=== PATIENT | female | born 1950 | race Caucasian/White ===

== ENCOUNTER → 2016-07-28 | Outpatient (CLI) | payer BC ==
[~2016-07-28] MED LIST: DIPH50TA10 PO; IRBE-37 PO; WARF1TAB PO; WARF3TAB6 PO; WARF5TAB7 PO; WARF6TAB PO
[2016-07-28 12:28] LABS: BASO % 0.6 %; BASO ABS # 0.03 K/uL (0-0.2); COMPLETE YES; EOS % 2.7 %; HEMATOCRIT 42.7 % (37-47); IG% 0.2 %; LYMPH % 25.2 %; LYMPH ABS # 1.22 K/uL (1.2-3.4); MEAN CELL VOLUME 89.5 fL (80-100); MEAN CORPUSCULAR HEMOGLOBIN 28.5 pg (25-34); MEAN CORPUSCULAR HGB CONC 31.9 g/dl (32-36); MEAN PLATELET VOLUME 10.4 fL (7.4-10.4); MONO % 5.2 %; NEUT % 66.1 %; PLATELET COUNT 214 K/uL (130-400); RED BLOOD COUNT 4.77 M/uL (4.2-5.4); WHITE BLOOD COUNT 4.84 K/uL (4.8-10.8)
[2016-07-28 13:43] LABS: ESTIMATED AVERAGE GLUCOSE 108 mg/dl; HA1C FLAG Normal (Normal)
[2016-07-28 14:34] LABS: BLOOD UREA NITROGEN 11 mg/dl (7-18); BUN/CREATININE RATIO 15.9 (10-20); CALCIUM 8.9 mg/dl (8.5-10.1); CARBON DIOXIDE 25 mmol/L (21-32); CHLORIDE 106 mmol/L (98-107); CREATININE 0.71 mg/dl (0.60-1.20); GLUCOSE 81 mg/dl (70-99); POTASSIUM 3.9 mmol/L (3.5-5.1); SODIUM 143 mmol/L (136-145)
[2016-07-28 14:37] LABS: CHOLESTEROL 180 mg/dl (0-200); HDL CHOLESTEROL 60 mg/dl; LDL CHOLESTEROL CALCULATED 107 mg/dl; TRIGLYCERIDES 65 mg/dl (0-150); VERY LOW DENSITY LIPOPROT CALC 13 mg/dl
== END | disposition home or self-care (01) ==
LOC: C.LABBFT 07:45
PROVIDERS: ATTEND Nurse Practitioner Adult Health
DX: I10 Essential (primary) hypertension (principal); Z87.898 Personal history of other specified conditions

== ENCOUNTER → 2017-08-17 | Outpatient (CLI) | payer OTHER ==
[~2017-08-17] MED LIST changes: -IRBE-37 PO; -WARF1TAB PO; -WARF6TAB PO
--- NOTE | 2017-08-18 15:14 | MAMMOGRAPHY REPORT ---
BILATERAL DIGITAL SCREENING MAMMOGRAM TOMOSYNTHESIS WITH CAD: 08/17/2017 CLINICAL HISTORY: Routine screening. TECHNIQUE: Breast tomosynthesis in addition to standard 2D mammography was performed. Current study was also evaluated with a Computer Aided Detection (CAD) system. COMPARISON: Comparison is made to exams dated: 04/28/2016 mammogram, 04/23/2015 mammogram, 04/17/2014 ma mmogram, 02/28/2013 mammogram, 02/23/2012 mammogram, and 02/19/2011 mammogram - [facility]. BREAST COMPOSITION: There are scattered areas of fibroglandular density in both breasts. FINDINGS: There is a small cluster of microcalcifications in the upper outer one third of the right breast, for which additional spot magnification views are recommended. No other suspicious mass, architectural distortion or cluster of microcalcifications is seen. IMPRESSION: ACR BI-RADS CATEGORY 0: INCOMPLETE EVALUATION: NEED ADDITIONAL IMAGING EVALUATION The small cluster of microcalcifications in the right upper outer breast needs additional evaluation. The patient will be called to schedule an appointment. Approximately 10% of breast cancers are not detected with mammography. A negative mammographic report should not delay biopsy if a clinically suggestive mass is present. Mary Christianson M.D. ay/:08/17/2017 15:45:02 Cupola Patcher Helper: Vivi PETE)(M), [facility] letter sent: Addl Imaging 0 BI-RADS Code: ACR BI-RADS Category 0: Incomplete Evaluation: Need Additional Imaging Evaluation
== END | disposition home or self-care (01) ==
LOC: C.MAMM 10:26
PROVIDERS: ATTEND Family Medicine
DX: Z12.31 Encounter for screening mammogram for malignant neoplasm of breast (principal); R92.0 Mammographic microcalcification found on diagnostic imaging of breast

== ENCOUNTER → 2017-09-01 | Outpatient (CLI) | payer OTHER ==
--- NOTE | 2017-09-01 13:18 | MAMMOGRAPHY REPORT ---
UNILATERAL RIGHT DIGITAL DIAGNOSTIC MAMMOGRAM: 09/01/2017 CLINICAL HISTORY: 66-year-old woman called back from screening mammography for a small cluster of michael rocalcifications in the right upper outer breast. TECHNIQUE: Spot magnification right CC and ML views were obtained. COMPARISON: Comparison is made to exams dated: 08/17/2017 mammogram, 04/28/2016 mammogram, 04/23/2015 ma mmogram, 04/17/2014 mammogram, 02/28/2013 mammogram, and 02/23/2012 mammogram - [facility] enter. BREAST COMPOSITION: There are scattered areas of fibroglandular density in the right breast. FINDINGS: Spot magnification views of the right breast demonstrate a faint cluster of amorphous micro calcifications in the upper outer middle one third of the breast, measuring 2.9 mm in maximum dimensi on. These calcifications are new comparing to prior available mammograms and are indeterminate. Dif ferential considerations include benign fibrocystic changes, but atypia or malignancy could appear si milar. Definitive characterization with a stereotactic guided biopsy is recommended. IMPRESSION: ACR BI-RADS CATEGORY 4: SUSPICIOUS Right breast stereotactic guided biopsy is recommended for a newly visualized faint 2.9 mm cluster of amorphous microcalcifications in the upper outer middle one third of the breast. These results and recommendations were discussed with the patient and her at the time of the exam. She tentatively scheduled the biopsy prior to leaving our department. We discussed that she s hould not discontinue or alter Coumadin prior to biopsy. Approximately 10% of breast cancers are not detected with mammography. A negative mammographic report should not delay biopsy if a clinically suggestive mass is present. Mary Christianson M.D. ay/:09/01/2017 12:31:16 Mica Spreader: Gogo PETE)(Joseph), [facility] letter sent: Abnormal 4/5 BI-RADS Code: ACR BI-RADS Category 4: Suspicious
== END | disposition home or self-care (01) ==
LOC: C.MAMM 11:24
PROVIDERS: ATTEND Nurse Practitioner Family
DX: R92.0 Mammographic microcalcification found on diagnostic imaging of breast (principal)

== ENCOUNTER 2023-01-26 06:58 | Observation (INO) ==
--- NOTE | 2023-01-26 08:01 | History & Physical Bridge Note ---
Date of Service January 26, 2023 History & Physical Bridge Note I have examined the patient, reviewed the History & Physical and in the interval since the performance of the History & Physical I have noted the following changes of clinical significance: no changes noted Brief summary: Persistent exertional dyspnea Abnormal stress test Calcified coronaries Plan right and left heart cath with coronary angiography plus or minus PCI as indicated.
--- NOTE | 2023-01-26 08:02 | Pre Anesthesia Assessment ---
Date of Service January 26, 2023 Pre Sedation Assessment Vital Signs Temp Pulse Resp BP Pulse Ox O2 Del Method 01/26/23 07:10 36.6 C 67 18 181/96 H 96 Room Air Cardiovascular RRR, no murmur, no edema Respiratory normal respiratory effort, lungs clear to auscultation Pre-Sedation Airway Assessment Smoking Status: Former smoker Hx Sleep Apnea: No Short, Thick Neck: No Thyromental Distance: > or= 3.5 Finger Breadths Oral Cavity: + Dentures Mallampati Class: III Mallampati 3 ASA: ASA2 ASA 2 Notes The planned sedation has been discussed with the patient. Informed Consent was obtained. I have identified the patient, determined the appropriateness of sedation and have assessed the patient immediately prior to the procedure. All medicine(s) and interventions are by my order.
[2023-01-26] MEDS ORDERED: MIDAZOLAM HCL 1 MG/ML 2ML VIAL ONE ×2 (08:07→08:26)
[2023-01-26] MEDS ORDERED: niCARdipine HCL INJ 2.5 MG/ML 10 ML AMP ONE (08:07)
[2023-01-26] MEDS ORDERED: NITROGLYCERIN/D5W 100MCG/ML 20ML SYR ONE (08:07)
[2023-01-26] MEDS ORDERED: fentaNYL citrate PF 100 MCG/2 ML VIAL ONE ×2 (08:07→09:05)
[2023-01-26] MEDS ORDERED: HEPARIN (PORCINE) 1000 UNIT/ML 10 ML (CATH LAB USE ONLY) ONE (08:07)
[2023-01-26] MEDS ORDERED: hydrALAZINE HCL 20 MG/ML VIAL ONE (09:02)
[2023-01-26] MEDS ORDERED: diphenhydrAMINE 50 MG/ML VIAL ONE (09:15)
[2023-01-26] MEDS ORDERED: DOPamine 400MG / 250ML D5W (Cath Lab Use ONLY) IV ONE (09:47)
[2023-01-26] MEDS ORDERED: ONDANSETRON INJ 2 MG/ML 2 ML VIAL ONE ×3 (09:48→10:57)
[2023-01-26] MEDS ORDERED: TICAGRELOR 90 MG TAB ONE (09:50)
[2023-01-26] MEDS: MIDAZOLAM HCL 1 MG/ML 2ML VIAL ONE ×2 (09:56→10:01)
[2023-01-26 10:10] LABS: iSTAT Arterial Blood Gas HCO3 25 meg/L (19-24); iSTAT Arterial Blood Gas pCO2 44 mmHg (35-46); iSTAT Arterial Blood Gas pH 7.37 (7.35-7.45); iSTAT Arterial Blood Gas pO2 40 mmHg (80-95); iSTAT Carbon Dioxide 27 mmol/L (24-31); iSTAT Hematocrit 32 % (37-47); iSTAT Hemoglobin 10.9 g/dl (12.0-16.0); iSTAT Potassium 3.6 mmol/L (3.3-5.0); iSTAT Sodium 138 mmol/L (135-144)
[2023-01-26] MEDS ORDERED: ENOXAPARIN INJ 40 MG/0.4 ML SYR SQ SCH (10:15)
[2023-01-26] MEDS ORDERED: diazePAM 5 MG TABLET PO PRN (10:19)
[2023-01-26] MEDS ORDERED: ASPIRIN 325 MG ECTAB PO ONE (10:21)
--- NOTE | 2023-01-26 10:24 | Post Anesthesia Assessment ---
Date of Service January 26, 2023 Post Sedation Assessment Vital Signs Temp Pulse Resp BP Pulse Ox O2 Del Method 01/26/23 07:10 36.6 C 67 18 181/96 H 96 Room Air Recovery Score Activity: Moves 4 extremities Respiration: Deep Breath/Cough Circulation: +/-20% PreAnes Value Consciousness: Fully Awake Oxygen Saturation: > 92% On Room Air Discharge Sedation Level of Care: Fast Track Phase II Post Sedation Plan On clinical assessment, the patient appears to have tolerated the sedation without complications. Patient is recovering as anticipated. Patient will continue to be monitored by nursing and may be discharged when sedation discharge criteria are met per below protocol. Upon Completions of procedure up to 15 minutes continue every 5 minute vital signs and the P.A.R. score; then discharge to a Phase I or Fast Track to Phase II per the following guidelines: * Discharge Patient to appropriate Phase II area if PAR is 8 or greater or return to pre- procedure baseline. The post - procedure orders will be as directed. * If PAR score is less than 8 or not return to pre-procedure baseline then patient will follow Phase I monitoring till PAR is reached for Phase II. The Phase I may be done in procedure room or may call to secure a Phase I area. * If naloxone or flumazenil are used for reversal, hold in Phase I for continued monitoring from when last reversal dose was given for a minimum of 60 minutes or longer pending the nurse and/or physician discretion of patient condition before discharge to Phase II. Please call the Sedation Physician to re-evaluate and complete post-note for discharge to Phase II area. Do NOT discharge from procedure sedation or Phase 1 until post- sedation evaluation note is complete by procedure /sedation MD Sedation Discharge Instructions to be given to the patient at discharge to home. [facility] Procedure Codes (Charges) Indication for Procedure Indication for procedure: HIGHTOWER/angina abnormal stress Sedation/Anesthesia Procedure 1: Sedation/Anesthesia: 59527 Mod Sedation by the same physician;Init15 Min Child Age 5 & Up (Initial 15 minutes, start time 0821) Total Sedation Time (minutes): 102 Procedure 2: Sedation/Anesthesia: 96743 Mod Sedation by the same physician; Ea [id number] Minutes (Additional 87 min, end time 1003) Total Sedation Time (minutes): 102
--- NOTE | 2023-01-26 10:46 | Cardiac Catheterization ---
ACC Data: Grape Picker Cardiac Status Clinical evaluation leading to the procedure Exertional dyspnea, abnormal stress test CAD Presenation: Positive Stress Test Anginal Classification: CCS III Heart Failure: No Cardiogenic Shock within 24 Hours: No Cardiac Arrest within 24 Hours: No Imaging Studies Past 6 Months: Yes Stress Studies Past 6 Months: Yes Coronary Anatomy Dominant: Right Left Main (% Stenosis): Normal LAD (% Stenosis): Mid (90%) D1 (% Stenosis): Ostial (90%) D2 (% Stenosis): Ostial (99%) and Proximal Circumflex (% Stenosis): Normal (Diffuse mild) OM1 (% Stenosis): Proximal (20 to 30%) L PL1 (% Stenosis): Normal RCA (% Stenosis): Proximal (Calcified up to 40%) and Mid (30%) R PDA (% Stenosis): Normal R PL1 (% Stenosis): Normal Ramus (% Stenosis): Ostial (95%) Diagnostic Physicians Name: Davidson Baez MD, PhD Closure Device Percutaneous Entry Location: Radial and femoral Closure Device: Angio-Seal and Radial Band Recommendations: Medical Therapy and/or Counseling and PCI without planned CABG PCI Indication: Stable Angina Lesion Segment Name: Mid to distal LAD Culprit Artery: Yes Stenosis Prior to Rx (%): 90% Chronic Total Occlusion: No Pre-Procedure MARANDA Flow: 3 Previously Treated Lesion: No Lesion Complexity: High/C Lesion Length (mm): 15 mm Thrombus Present: No Bifurcation Lesion: Yes Guidewire Across Lesion: Yes Lesion #2 Segment Name: Ostial to proximal D2 Culprit Artery: Yes Stenosis Prior to Rx (%): 99 Chronic Total Occlusion: No Pre-Procedure MARANDA Flow: 2 Previously Treated Lesion: No Lesion Complexity: Non-High/Non-C Lesion Length (mm): 6 Thrombus Present: No Bifurcation Lesion: Yes Guidewire Across Lesion: Yes Cardiac Cath Procedure Full Procedure Date January 26, 2023 Pre-Procedure Diagnosis Pre-Procedure Diagnosis: Positive Stress Test AUC Score AUC Score: 07 Post-Procedure Diagnosis Post-Procedure Diagnosis: Severe CAD Procedure(s) Performed Procedure(s) Performed: Coronary Angiography, Right Heart Cath, PTCA, Drug Eluting Stent and Ultrasound Guided Vascular Access Box Turner Davidson Baez MD, PhD Estimated Blood Loss Estimated Blood Loss: 20 ML Medication(s) Medication(s): Fentanyl, Heparin, Hydralazine, Lidocaine 1%, Nitroglycerin and Versed Summary of Findings Brief description: Patient was brought to the cardiac catheterization suite where she was shaved and prepped in a sterile fashion. Sedated using IV Versed and fentanyl. Patient had a large bore IV in her vein at the right antecubital fossa. Soft tissues around the IV site were anesthetized using 1 mL of 1% Xylocaine. The IV was exchanged over a 0.014 sheath wire for a 6 Georgian sheath. However, we were unable to aspirate blood and we could not find the lumen of the IV. Therefore, this sheath was removed and hemostasis was obtained using manual compression. Soft tissues of the right wrist were anesthetized using 2 mL of 1% Xylocaine. The right radial artery was accessed using a modified Seldinger technique. Despite multiple sticks we were unable to pass the guidewire up the artery far enough to insert a radial artery sheath. Suspect significant tortuosity as we approached the antecubital fossa. Therefore, we eventually decided to abandon radial artery access. This sheath was fixed in place to be removed once the case was completed. We then turned our attention to right femoral access. Soft tissues of the right groin were anesthetized using 10 mL of 1% Xylocaine. Using ultrasound for guidance, the right femoral vein was accessed and a 6 Georgian femoral venous sheath was placed. Then, again using the ultrasound for guidance (image saved), the right femoral artery was accessed and a 5 Georgian femoral artery sheath was placed. All catheters were then advanced and exchanged over a 0.035 J-tip wire. Left coronary angiography was performed in orthogonal views with a 5 Georgian JL 4 guiding diagnostic catheter. Right coronary angiography was performed in orthogonal views with a 5 Georgian JR4 diagnostic catheter. Diagnostic catheters were removed. A 6 Georgian Palacios-Di catheter was then advanced through the femoral venous sheath and using a Palacios-Di wire it was advanced under fluoroscopy and positioned terminally in the "wedge position". The pulmonary capillary wedge pressure was then sampled. The Palacios balloon was deflated and the pulmonary arterial pressure and oxygen saturation were sampled. A systemic arterial oxygen saturation was obtained via the femoral artery sheath. Palacios-Di catheter was pulled back into the right ventricle where right ventricular hemodynamics were measured. Finally, the catheter was pulled into the right atrium or right atrial pressure and oxygen saturation were sampled. The catheter was then removed from the patient. We next wished to proceed with PCI. We needed to exchange the 5 Georgian femoral artery sheath for the 6 Georgian femoral artery sheath. However, when we tried to make the exchanged over the J- wire we lost both the femoral sheath access as well as the wire access. Theref ore, hemostasis at the right groin site was obtained using manual compression for 20 minutes. Once this was obtained, decision was made to proceed with access from the left femoral artery. Soft tissues of the left groin were anesthetized using 10 mL of 1% Xylocaine. Using the ultrasound for guidance (image saved), the left femoral artery was accessed and a 6 Georgian femoral artery sheath was placed. The patient was then provided IV heparin. The ACT was checked intermittently throughout the case to ensure therapeutic anticoagulation. Additional IV heparin was provided as necessary. A 6 Georgian BMW 3.5 guide catheter was advanced over the J-wire and used to engage the left main coronary. Through this, a BMW number so guidewire was advanced under fluoroscopic guidance and positioned distally in the LAD. Then, a second BMW universal guidewire was advanced and directed into the second diagonal where it was positioned distally. The lesion in the ostial to proximal second diagonal was predilated using a 2.0 x 12 mm sprinter balloon and inflated up to 8 sarah x 2. The balloon was then removed and advanced over the BMW reversal guidewire in the LAD. This lesion was then predilated using up to 8 sarah. The balloon was subsequently removed. A 2.5 x 22 mm [place] drug-eluting stent was then advanced and positioned across the lesion in the mid to distal LAD. The guidewire in the second diagonal was pulled back into the guide catheter to avoid trapping it behind the stent. The stent was then deployed using 10 sarah of pressure. Patient reported onset of chest discomfort. Airline Pilot angiography was performed. This demonstrated plaque shifting and jailing of the ostium in the diagonal branch with significantly reduced flow. The patient's blood pressure also was noted to be extremely elevated. She was provided IV hydralazine as well as intracoronary nitroglycerin. The second BMW guidewire was readvanced and directed into the second diagonal where it was advanced to the mid segment. A 2.0 x 6 mm sprinter balloon was then advanced over the wire. It was first positioned in the proximal portion of the diagonal 2 and inflated to 8 sarah. The balloon was then deflated and positioned across the stent strut/ostium where it was again inflated up to 8 sarah. Patient reported improvement but not resolution of her chest discomfort. Airline Pilot angiography suggested modest improvement in flow in the diagonal. No additional intervention was performed on the diagonal branch because of high risk for complication. The second BMW guidewire and the balloon were both removed. The initial BMW guidewire in the LAD was also removed and angiography was performed. The guide catheter was then removed. We intended to perform left femoral artery angiography to evaluate for closure. However, a hematoma was noted prior to the sheath removal. The sheath was also noted to be kinked near the entry into the femoral artery on angiography. We were able to eventually pass a 0.035 J-wire through the sheath undue kink. Then, the femoral artery sheath was exchanged for a 6 Georgian Angio-Seal closure device. This was deployed in the recommended fashion. We obtained immediate hemostasis and the patient remained stable (hypertensive). ACT was checked prior to sheath removal and additional heparin was provided until patient could receive oral Brilinta. Hemostasis at the femoral venous access site was obtained using manual pressure. The radial artery access site hemostasis was obtained using a TR band. Patient was then transported to the recovery area with plan for admission overnight. This ended the case. Right heart cath findings: PCWP-15 mmHg PAP-30/13 mmHg, mean 19 mmHg RVP-30/6 mmHg, RVEDP 10 mmHg RA-8 mmHg PA O2 sat-73% RA O2 sat-67% Ao O2 sat-97% Cardiac output (Milagro): 7.04 L/min Cardiac index (Milagro): 3.77 L/min/m Pulmonary vascular resistance- 0.57 Glover units Systemic vascular resistance-11.22 Glover units Total vascular resistance-12.35 Glover units Coronary angiography findings: YFN-lezzz-dzocdfh short vessel which trifurcates into LAD, ramus, and circumflex. No disease. LAD-large caliber and transapical. Proximal segment has mild calcification with ostial up to 30% stenosis. There is a medium caliber first septal and a small to medium caliber branching first diagonal. This has diffuse up to 90% stenosis. Mid LAD has a long eccentric 90% stenosis crossing the ostium of the second diagonal. Second diagonal is a medium to large in caliber with an ostial 99% stenosis and proximal tortuosity with mild to moderate disease. The vessel then branches after the proximal portion. The distal LAD has mild scattered disease. Ramus-small in caliber long vessel with ostial 95% stenosis. GCb-dqdrd-bxloiub and nondominant. Proximally there is mild luminal irregularities in the AV groove vessel. It provides a large caliber branching OM1. This vessel has mild 20 to 30% stenosis. The mid AV groove circumflex has diffuse mild disease. It then becomes small in the AV groove distally and provides a small posterolateral branch. FZO-vbidg-nplppto dominant vessel. Proximal segment with a long eccentric calcified stenosis of up to 40%. The mid RCA has 30% stenosis. Distally the vessel appears normal. It bifurcates into a PDA and posterolateral branch which have no significant disease. PCI of LAD- 0% residual stenosis in the LAD post PCI. MARANDA-3 flow in the LAD post PCI No evidence of dissection or perforation in the LAD post PCI The severely diseased ostial to proximal segment of the second diagonal remains jailed and severely diseased. Not amenable to further intervention. Summary: 1. Severe coronary artery disease. LAD most affected with several smaller side branches also having significant disease. The small branches are too small for stenting. 2. Successful PCI of the LAD with implantation of a single drug-eluting stent. Diagonal #2 jailed with reduced flow. 3. Right heart cath suggests normal intracardiac pressures and normal cardiac output. 4. Patient with significant vascular access issues. This includes at the original upper extremity venous access site. Right radial access site which was unable to be traversed with the guidewire despite good blood return. Also with right femoral artery access difficulty. Finally, moderate sized hematoma at the left femoral access site. Appears to be bleeding around the sheath (very elevated blood pressure while on blood thinners and sheath which was kinked). 5. Patient will remain on dual antiplatelet therapy with aspirin 81 mg daily and Brilinta 90 mg p.o. twice daily. She will also be started on guideline directed medical therapy for secondary prevention of coronary disease. 6. Patient will be admitted overnight for observation on a monitored unit given the vascular access issues and the jailed diagonal branch. Hemodynamics Rest Ao:: 149/76 mmHg Final Ao: 114/65 mmHg LV: Not performed Recommendations Recommendations: Medical Therapy and/or Counseling and PCI without planned CABG Radiation Exposure (mGy) 2070 mGy, fluoroscopy time 12.9 minutes Contrast (mls) 200 mL Anesthesia 4 mg IV Versed, 125 mg IV fentanyl. Start time 0821, end time 1003 Procedural Complication(s) Hematoma Disposition PCU I attest to the content of the Intraoperative Record and any orders documented therein. Any exceptions are noted below. [facility] Card Cath Procedure Codes Cardiac Catheterization Procedure 1: Cardiovascular Cath Procedures: 62847 Coronaries and RHC Therapeutic Services & Ancillary Procedure 1: Cardiovascular Tx and Anc Procedures: 72049 Ultrasonic Guidance Vascular Access Moderate Sedation Procedure 1: Sedation/Anesthesia: 57964 Mod Sedation by the same physician;Init15 Min Child Age 5 & Up (Initial 15-minute (start time 0821)) Procedure 2: Sedation/Anesthesia: 45687 Mod Sedation by the same physician; Ea [id number] Minutes (Additional 77 min (end time 1003) Angioplasty Procedure 1: Cardiovascular Angioplasty Procedures: 53174 PTCA; Single mafor coronary artery or branch RC LC LD (LD (D2)) Stenting Procedure 1: Cardiovascular Stent Procedures: 65785 Perc transcatheter placement of intracoronary stent(s), with ang (LD) PG Care Time/CCT Total # of Minutes Spent Total Time Spent with Patient: Total time spent is greater than 50% in coordination of care (as documented) at patient's floor/unit and/or counseling patient:
[2023-01-26] MEDS ORDERED: PHENYLEPHRINE HCL INJ 10 MG/ML VIAL (CATH LAB USE ONLY) ONE ×2 (10:53→11:04)
[2023-01-26] MEDS ORDERED: ASPIRIN 81 MG CHEW ONE (11:03)
[2023-01-26] MEDS ORDERED: OPTIRAY 320 100ml IV ONE (11:20)
--- NOTE | 2023-01-26 11:50 | CT Scan Report ---
CT OF THE ABDOMEN AND PELVIS WITH CONTRAST CLINICAL HISTORY: post cardiac cath, femoral access COMPARISON STUDY: CT of the abdomen and pelvis March 12, 2016. MRI of the pelvis August 10, 2020. TECHNIQUE: Following IV administration of 89 mL of Optiray, axial images of the abdomen and pelvis we re obtained from the lung bases to the proximal femurs. Images were reviewed in the axial, sagittal, and coronal planes. IV contrast was administered without complication. Automated exposure control wa s utilized for the study. A dose lowering technique was utilized adhering to the principles of ALARA . CT DOSE: 1646.39 mGy.cm FINDINGS: No pneumatosis, free air or portal venous gas is present. The liver, adrenal glands and sevilla creas are unremarkable. There are calcified granulomas within the spleen. 2.6 cm cyst arising from th e upper pole the left kidney is noted. There is no hydronephrosis. Excreted contrast within the urete rs, collecting systems and bladder from recent catheterization is noted. The bladder is distended. Th ere is no evidence for a bowel obstruction. The caliber and wall thickness of small and large bowel a re normal. There is moderate stranding with hyperdense fluid adjacent to the left common femoral and superficial femoral arteries. Mild stranding extends superiorly along the left external iliac vessels . There is no significant retroperitoneal hematoma. No active extravasation is identified. No pseudoa neurysm is identified on non-CTA exam. No well-defined fluid collection is present. Postoperative fin dings within the lumbar spine are incidentally noted. IMPRESSION: Moderate stranding with small amount of hyperdense fluid adjacent to the left groin vessels, as descr ibed above. This is consistent with hemorrhage. No large hematoma. No pseudoaneurysm. Minimal hemorrh age extending superiorly along the left external iliac vessels without significant retroperitoneal he matoma. ACT 112: Negative or not required by law. Electronically signed by: Matthew Rodriguez M.D. 01/26/2023 11:49 AM
--- NOTE | 2023-01-26 12:11 | Critical Care Consultation ---
Date of Consultation January 26, 2023 Assessment & Plan (1) Hemorrhagic shock: (2) HTN (hypertension): (3) Abnormal stress test: (4) HIGHTOWER (dyspnea on exertion): (5) Coronary artery disease: Plan Patient with postprocedural hypotension likely a mixture of hypovolemia/hemorrhage and sedation related hypotension. No large hematoma or hemorrhage identified on CT abdomen/pelvis. There is a small fluid collection noted around the left groin vessels. Status post drug-eluting stent to the LAD. Guideline therapy per cardiology. Hopefully stenting will help improve her dyspnea. Recommend cardiac rehab as an outpatient. We will hold oral antihypertensives today. Antiplatelet therapy per cardiology. She is responding well to crystalloids and has been weaned off phenylephrine. If her blood pressure were to drop again, we will place an arterial line for invasive monitoring. I-STAT CBC with a hemoglobin of 10.9 which is slightly lower than baseline. INR and PTT pending. Lactate pending as well. Await repeat echo results. Continue Anthony catheter as long as she remains supine per cardiology recommendations due to invasive access related to her heart catheterization. Thank you for allowing us to participate in the care of the patient. We will continue to follow with you as long as she remains under ICU status History of Present Illness Reason for Consultation: Hypotension status post left heart catheterization and right heart catheterization Attending Physician: Davidson Baez MD, PhD History of Present Illness 72-year-old female with a past medical history of recalcitrant hypertension, anxiety, IBS, BPPV, prior pulmonary embolism and spinal stenosis who presented today to undergo an elective right and left heart catheterization by Dr. Baez. She has chronic shortness of breath with exertion. She denies any cough, fevers, chills or night sweats. No chest pain. I spoke with Dr. Baez regarding her case. He noted that she had difficult access due to obesity and excess skin tissue from prior weight loss. He tried access from both femoral sites and there was ultimately some bleeding around the left groin vessels during access. He notes that her systolic blood pressure was in the 240s during that timeframe. Stat CTA of the abdomen and pelvis was obtained. Moderate stranding with small amount of hyperdense fluid adjacent to the left groin vessels was noted which was consistent with hemorrhage. No large hematoma or retroperitoneal hematoma was noted. Patient received several boluses of crystalloids and phenylephrine. Since transferring from the Gynecologist to the ICU, she has been weaned off of phenylephrine and maintaining systolic blood pressures in the 120s on noninvasive blood pressure cuff readings. She had a serologic secondary hypertension work-up by Dr. Baez which was unremarkable. She is currently undergoing an echo. Allergies Allergy/AdvReac Type Severity Reaction Status Date / Time cat dander Allergy Severe THROAT Verified 01/26/23 07:36 CLOSES lubiprostone [From Amitiza] Allergy Severe elevated Verified 01/26/23 07:36 inr metronidazole [From Flagyl] Allergy Severe "severe Verified 01/26/23 07:36 reaction, can't even describe" rivaroxaban [From Xarelto] Allergy Intermediate Back Pain Verified 01/26/23 07:36 losartan Allergy Mild nausea/heart Verified 01/26/23 07:36 palpitations lisinopril AdvReac Mild Nausea Verified 01/26/23 07:36 Home Medications Medication Instructions Recorded Confirmed Type pharmacy compounding accessory #28 ea 03/08/19 01/07/23 Rx diclofenac sodium 1 % topical gel 2 gm topical TID PRN pain and 04/11/19 01/26/23 History inflammation #1 g conjugated estrogens 0.625 mg/gram 0.625 mg vaginal .COMPLEX 12/24/20 01/26/23 History vaginal cream (Premarin) fluocinonide 0.05 % topical cream 1 applic topical DAILY PRN rash 03/04/21 01/26/23 Rx #15 grams hydrocortisone 2.5 % topical cream 1 applic topical .COMPLEX #30 grams 05/01/21 01/26/23 Rx mupirocin 2 % topical ointment 1 applic topical BID #15 grams 05/06/21 01/26/23 Rx duloxetine 30 mg capsule,delayed 30 mg PO DAILY PRN Anxiety 12/25/21 01/26/23 History release (Cymbalta) clindamycin phosphate 1 % topical 1 applic topical BID PRN Acne 10/23/22 01/26/23 History solution clotrimazole 1 % topical solution See Rx Instructions topical BID 10/23/22 01/26/23 History PRN acne diazepam 5 mg tablet 5 mg PO BID PRN anxiety #15 tabs 10/23/22 01/26/23 Rx fluocinolone acetonide oil 0.01 % 4 drp otic (ear) BID PRN ear 10/23/22 01/26/23 History ear drops itching meloxicam 15 mg tablet 15 mg PO DAILY PRN Inflammation 10/23/22 01/26/23 History duloxetine 60 mg capsule,delayed 60 mg PO QAM #90 caps 12/11/22 01/26/23 Rx release (Cymbalta) irbesartan 150 mg tablet 75 mg PO BID 30 days #30 tabs 12/25/22 01/26/23 Rx hydrocortisone acetate 25 mg 25 mg OR BID PRN pain #24 ea 01/11/23 01/26/23 Rx rectal suppository (Anucort-HC) lactulose 10 gram/15 mL oral 30 g (45 mL) PO QID PRN 01/11/23 01/26/23 Rx solution constipation #473 mL Patient History Medical History (Updated 01/26/23 @ 13:37 by Pérez Stover MD) Arthritis Atrophic vaginitis Chronic pelvic pain syndrome in female Coronary artery disease CRPS (complex regional pain syndrome) Hemorrhagic shock HTN (hypertension) Hx of diverticulitis of colon Hx of pulmonary embolus "IN MY 20'S" (TREATED WITH IV HEPARIN IN THE HOSPITAL) IBS (irritable bowel syndrome) Kidney lesion PER PATIENT Mixed conductive and sensorineural hearing loss of right ear with restricted hearing of left ear Rectocele Sensorineural hearing loss of both ears Spinal stenosis Surgical History History of appendectomy History of colonoscopy History of cystoscopy WNL History of D&C History of lumbar surgery X 3 History of partial hysterectomy History of salpingo-oophorectomy LEFT History of surgery right index finger repair History of tonsillectomy Family History Father Prostate cancer Kidney stones Hearing loss Environmental allergies severe hay fever Unknown Myocardial infarction Prostate cancer Mother Breast cancer Other No family history of adverse response to anesthesia No family history of bleeding disorder Denies family history of Ovarian cancer Colorectal cancer Social History Smoking Status: Former smoker Tobacco Type: Cigarettes Age Started Using Tobacco: 20; Age Quit Using Tobacco: 44; packs per day: 3; Second Hand Exposure: Yes (IN THE PAST); Do You Dip or Chew Tobacco: No; Hx Alcohol Use: No Hx Substance Use: No Preferred Language: Yoruba Communication Ability: Effective Visual Impairment: No Limitations Hearing Ability: Normal Hog Worker Required: No Beliefs That Will Affect Care: None marital status: Current Living Situation: Spouse current occupational status: retired current occupation: used to be a homemaker How many Children do You have: 1 Other Information That Helps Us Care for You: No Feels Safe at Home: Yes Safety Concerns: Feels Safe At This Time Childhood Exposure to Second-Hand Smoke: Yes Diet: regular caffeine: No during the past year weight has: remained stable Dental Care, Regularly: No Physical Activity Frequency: Daily Seatbelt Use: always Sunscreen Use: No Assistive Devices: Contacts, Denture - Upper and Denture - Lower Review of Systems Review of Systems: All systems reviewed & are unremarkable except as noted in HPI & below Physical Exam Physical Exam: Constitutional: Patient appears to be of their stated age. Patient is in no apparent distress. Patient is well-developed. Eyes: Pupils are equal round and reactive to light. Conjunctivae are normal. Anicteric sclera. Ears nose, mouth and throat: Mallampati class 2. Normal posterior oropharynx. Uvula is midline. Neck: Trachea is midline. Visual inspection is normal. Respiratory: Clear to auscultation bilaterally. No use of accessory muscles. No significant clubbing noted. Cardiovascular: Distal peripheral pulses intact. No murmurs, rubs or gallops. Femoral puncture sites appear to be intact without evidence of bleeding. Left femoral site with mild fullness. Gastrointestinal: Normal bowel sounds, soft, nontender and nondistended. No hepatosplenomegaly noted. Musculoskeletal: No cyanosis. Patient is able to move all extremities. Strength is 5 out of 5 in the upper and lower extremities. Skin: No rashes, warm dry and intact. Neurologic: No obvious focal neurological deficits seen. Psychiatric: Alert and oriented x3 with a euthymic affect. Results & Data Results & Data Vital Signs (Past 12 Hours) Vital Signs Temp Pulse Resp BP Pulse Ox O2 Del Method 01/26/23 11:45 63 16 121/59 L 96 Room Air 01/26/23 11:30 63 16 126/58 L 96 Room Air 01/26/23 11:00 63 16 105/53 L 96 Room Air 01/26/23 10:45 63 16 82/42 L 96 Room Air 01/26/23 10:35 65 16 89/43 L 92 Room Air 01/26/23 10:20 65 16 93/50 L 92 Room Air 01/26/23 07:10 36.6 C 67 18 181/96 H 96 Room Air Coding Level of Care Code 55698 IN/OBS CONSULT LVL 5,80M Diagnoses Hemorrhagic shock R57.8 HTN (hypertension) I10 Hypertension type: primary hypertension Abnormal stress test R94.39 HIGHTOWER (dyspnea on exertion) R06.09 Coronary artery disease I25.10 (2) HTN (hypertension) Hypertension type: primary hypertension Qualified Code(s): I10 - Essential (primary) hypertension
[2023-01-26 13:26] LABS: Hematocrit (blood only) 35.1 % (37.0-47.0); Hemoglobin 11.5 g/dl (12.0-16.0); Mean Corpuscular Hemoglobin 28.7 pg (25.0-34.0); Mean Corpuscular Hgb Conc 32.8 g/dL (32.0-36.0); Mean Corpuscular Volume 87.5 fL (80.0-100.0); Mean Platelet Volume 10.2 fL (9.4-12.4); Platelet Count 240 K/uL (130-400); RDW Coefficient of Variation 14.3 % (11.5-14.5); RDW Standard Deviation 45.8 fL (36.4-46.3); Red Blood Count 4.01 M/uL (4.20-5.40); White Blood Count 10.93 K/ul (4.8-10.8)
[2023-01-26] MEDS: ACETAMINOPHEN 325 MG TAB PO PRN ×3 (13:48→22:02)
[2023-01-26 14:08] LABS: Partial Thromboplastin Ratio 2.6
[2023-01-26 14:11] LABS: Partial Thromboplastin Time 72.3 Seconds (21.0-31.0)
[2023-01-26 14:39] LABS: BUN Creatinine Ratio 16.2 (10-20); Calcium 8.6 mg/dl (8.6-10.3); Creatinine Clr Calc Pharmacy 36.4 ml/min; Est GFR (African American) 95.1 ml/min; Est GFR (Non-African American) 82.1 ml/min; Potassium 3.5 mmol/L (3.5-5.1)
--- NOTE | 2023-01-26 16:38 | XCELERA ---
[id number] [id number]
[2023-01-26] MEDS: TICAGRELOR 90 MG TAB PO SCH (20:04)
[2023-01-26] MEDS: METOPROLOL TARTRATE 25 MG TAB PO SCH (20:04)
[2023-01-26] MEDS: LOSARTAN POTASSIUM 25 MG TAB PO SCH (20:06)
[2023-01-27] MEDS: ACETAMINOPHEN 325 MG TAB PO PRN ×2 (04:58→08:26)
[2023-01-27 05:20] LABS: Basophils # (auto) 0.04 K/uL (0.00-0.20); Basophils % (auto) 0.5 %; Eosinophils # (auto) 0.19 K/uL (0.00-0.50); Eosinophils % (auto) 2.3 %; Hematocrit (blood only) 32.2 % (37.0-47.0); Hemoglobin 10.6 g/dl (12.0-16.0); Immature Granulocytes # (auto) 0.03 K/uL (0.01-0.20); Immature Granulocytes % (auto) 0.4 %; Lymphocytes # (auto) 1.32 K/uL (1.20-3.40); Lymphocytes % (auto) 16.1 %; Mean Corpuscular Hemoglobin 28.6 pg (25.0-34.0); Mean Corpuscular Hgb Conc 32.9 g/dL (32.0-36.0); Mean Corpuscular Volume 86.8 fL (80.0-100.0); Monocytes # (auto) 0.58 K/uL (0.11-0.59); Monocytes % (auto) 7.1 %; Neutrophils # (auto) 6.02 K/uL (1.40-6.50); Neutrophils % (auto) 73.6 %; Platelet Count 227 K/uL (130-400); RDW Coefficient of Variation 14.6 % (11.5-14.5); RDW Standard Deviation 46.5 fL (36.4-46.3); Red Blood Count 3.71 M/uL (4.20-5.40); White Blood Count 8.18 K/ul (4.8-10.8)
[2023-01-27 05:33] LABS: BUN Creatinine Ratio 17.9 (10-20); Calcium 8.6 mg/dl (8.6-10.3); Est GFR (African American) 89.3 ml/min; Potassium 3.7 mmol/L (3.5-5.1)
[2023-01-27] MEDS ORDERED: POTASSIUM CHLORIDE CRTAB 20 MEQ TABCR PO STA (05:54)
--- NOTE | 2023-01-27 07:45 | Hospitalist Progress Note ---
Date of Service January 27, 2023 Assessment & Plan (1) Coronary artery disease: Plan: Status post drug-eluting stent to the LAD. Guideline therapy per cardiology. aspirin , Brilinta, atorvastatin, metoprolol Cozaar Recommend cardiac rehab as an outpatient. (2) Hemorrhagic shock: Plan: Pt was hypotensive posts procedure concern for hypovolemic shock, supported briefly with pressors No large hematoma or hemorrhage identified on CT abdomen/pelvis. There is a small fluid collection noted around the left groin vessels. (3) HTN (hypertension): Plan: typically with metoprolol Plan Continue Anthony catheter as long as she remains supine per cardiology recommendations due to invasive access related to her heart catheterization. Thank you for allowing us to participate in the care of the patient. We will continue to follow with you as long as she remains under ICU status Admission and Anticipated Discharge Date Admission Date: January 26, 2023 Results & Data Results & Data Vital Signs (Past 12 Hours) Vital Signs Temp Pulse Resp BP Pulse Ox 01/27/23 05:02 144/97 H 01/27/23 05:02 62 13 96 01/27/23 05:01 65 17 95 01/27/23 05:01 171/101 H 01/27/23 05:00 62 18 96 01/27/23 04:30 59 L 15 95 01/27/23 04:01 63 14 94 01/27/23 04:01 168/94 H 01/27/23 04:00 98.6 F 60 13 95 01/27/23 03:30 57 L 13 95 01/27/23 03:00 64 16 95 01/27/23 03:00 161/87 H 01/27/23 02:30 59 L 20 93 01/27/23 02:00 61 17 93 01/27/23 02:00 167/84 H 01/27/23 02:00 167/84 H 01/27/23 01:30 60 21 93 01/27/23 01:00 62 14 94 01/27/23 01:00 172/93 H 01/27/23 00:30 60 21 94 01/27/23 00:00 64 13 94 01/27/23 00:00 150/84 H 01/26/23 23:30 61 16 94 01/26/23 23:59 84 01/26/23 23:00 64 13 95 01/26/23 23:00 142/73 H 01/26/23 22:00 65 12 95 01/26/23 22:00 157/87 H 01/26/23 22:00 98.4 F 157/87 H 01/26/23 21:00 68 13 96 01/26/23 21:00 159/82 H 01/26/23 20:00 98.4 F 01/26/23 20:30 67 14 94 01/26/23 20:00 69 14 94 01/26/23 20:00 145/90 H PG Care Time/CCT Total # of Minutes Spent Total Time Spent with Patient: Total time spent is greater than 50% in coordination of care (as documented) at patient's floor/unit and/or counseling patient: Coding Diagnoses Coronary artery disease I25.10 Hemorrhagic shock R57.8 HTN (hypertension) I10 Hypertension type: primary hypertension (3) HTN (hypertension) Hypertension type: primary hypertension Qualified Code(s): I10 - Essential (primary) hypertension
[2023-01-27] MEDS: LOSARTAN POTASSIUM 25 MG TAB PO SCH (08:25)
[2023-01-27] MEDS: TICAGRELOR 90 MG TAB PO SCH (08:26)
[2023-01-27] MEDS: METOPROLOL TARTRATE 25 MG TAB PO SCH (08:26)
--- NOTE | 2023-01-27 08:27 | Critical Care Progress Note ---
Date of Service January 27, 2023 Assessment & Plan (1) Hemorrhagic shock: (2) HTN (hypertension): (3) Abnormal stress test: (4) HIGHTOWER (dyspnea on exertion): (5) Coronary artery disease: Plan Patient with postprocedural hypotension likely a mixture of hypovolemia/hemorrhage and sedation related hypotension. No large hematoma or hemorrhage identified on CT abdomen/pelvis. There is a small fluid collection noted around the left groin vessels. Hypotension has resolved. Status post drug-eluting stent to the LAD. Guideline therapy per cardiology. Hopefully stenting will help improve her dyspnea. Recommend cardiac rehab as an outpatient. May benefit from outpatient PFTs given prior smoking history of dyspnea persist while outpatient. Consider outpatient sleep study given hypertension that is resistant to multiple drugs. Antihypertensive and antiplatelet regimen per cardiology. She is responding well to crystalloids and has been weaned off phenylephrine. If her blood pressure were to drop again, we will place an arterial line for invasive monitoring. I-STAT CBC with a hemoglobin of 10.9 which is slightly lower than baseline. Repeat echo results unchanged per cardiology. Thank you for allowing us to participate in the care of the patient. We will continue to follow with you as long as she remains under ICU status. Can likely downgrade or discharge home today. Admission and Anticipated Discharge Date Admission Date: January 26, 2023 Subjective Patient seen and examined. She is sitting up in a chair without any complaints. Denies chest pain or shortness of breath. Review of Systems Review of Systems: All systems reviewed & are unremarkable except as noted in HPI & below Physical Exam Physical Exam: Constitutional: Patient appears to be of their stated age. Patient is in no apparent distress. Patient is well-developed. Eyes: Pupils are equal round and reactive to light. Conjunctivae are normal. Anicteric sclera. Ears nose, mouth and throat: Mallampati class 2. Normal posterior oropharynx. Uvula is midline. Neck: Trachea is midline. Visual inspection is normal. Respiratory: Clear to auscultation bilaterally. No use of accessory muscles. No significant clubbing noted. Cardiovascular: Distal peripheral pulses intact. No murmurs, rubs or gallops. Femoral puncture sites appear to be intact without evidence of bleeding. Left femoral site with mild fullness. Gastrointestinal: Normal bowel sounds, soft, nontender and nondistended. No hepatosplenomegaly noted. Musculoskeletal: No cyanosis. Patient is able to move all extremities. Strength is 5 out of 5 in the upper and lower extremities. Skin: No rashes, warm dry and intact. Neurologic: No obvious focal neurological deficits seen. Psychiatric: Alert and oriented x3 with a euthymic affect. Results & Data Results & Data Vital Signs (Past 12 Hours) Vital Signs Temp Pulse Resp BP Pulse Ox O2 Del Method 01/27/23 07:22 67 14 97 Room Air 01/27/23 07:22 138/84 01/27/23 07:00 66 16 96 01/27/23 07:00 131/77 01/27/23 08:01 37.0 C 01/27/23 05:02 144/97 H 01/27/23 05:02 62 13 96 01/27/23 05:01 65 17 95 01/27/23 05:01 171/101 H 01/27/23 05:00 62 18 96 01/27/23 04:30 59 L 15 95 01/27/23 04:01 63 14 94 01/27/23 04:01 168/94 H 01/27/23 04:00 37.0 C 60 13 95 01/27/23 03:30 57 L 13 95 01/27/23 03:00 64 16 95 01/27/23 03:00 161/87 H 01/27/23 02:30 59 L 20 93 01/27/23 02:00 61 17 93 01/27/23 02:00 167/84 H 01/27/23 02:00 167/84 H 01/27/23 01:30 60 21 93 01/27/23 01:00 62 14 94 01/27/23 01:00 172/93 H 01/27/23 00:30 60 21 94 01/27/23 00:00 64 13 94 01/27/23 00:00 150/84 H 01/26/23 23:30 61 16 94 01/26/23 23:59 84 01/26/23 23:00 64 13 95 01/26/23 23:00 142/73 H 01/26/23 22:00 65 12 95 01/26/23 22:00 157/87 H 01/26/23 22:00 36.9 C 157/87 H 01/26/23 21:00 68 13 96 01/26/23 21:00 159/82 H 01/26/23 20:30 67 14 94 Coding Level of Care Code 87615 SUB INP/OBS CARE 2/35MIN Diagnoses Hemorrhagic shock R57.8 HTN (hypertension) I10 Hypertension type: primary hypertension Abnormal stress test R94.39 HIGHTOWER (dyspnea on exertion) R06.09 Coronary artery disease I25.10 (2) HTN (hypertension) Hypertension type: primary hypertension Qualified Code(s): I10 - Essential (primary) hypertension
[2023-01-27] MEDS ORDERED: DULoxetine HCL 60 MG CAP PO SCH (09:00)
[2023-01-27] MEDS ORDERED: ATORVASTATIN 20 MG TAB PO SCH (09:00)
[2023-01-27] MEDS ORDERED: ASPIRIN 81 MG ECTAB PO SCH (09:00)
[2023-01-27 12:00] LABS: iSTAT Arterial Blood Gas HCO3 24 meg/L (19-24); iSTAT Arterial Blood Gas pCO2 38 mmHg (35-46); iSTAT Arterial Blood Gas pH 7.42 (7.35-7.45); iSTAT Arterial Blood Gas pO2 94 mmHg (80-95); iSTAT Carbon Dioxide 26 mmol/L (24-31); iSTAT Hematocrit 31 % (37-47); iSTAT Hemoglobin 10.5 g/dl (12.0-16.0); iSTAT Potassium 3.5 mmol/L (3.3-5.0); iSTAT Sodium 141 mmol/L (135-144)
[2023-01-27 12:00] LABS: iSTAT Arterial Blood Gas HCO3 26 meg/L (19-24); iSTAT Arterial Blood Gas pCO2 43 mmHg (35-46); iSTAT Arterial Blood Gas pH 7.38 (7.35-7.45); iSTAT Arterial Blood Gas pO2 36 mmHg (80-95); iSTAT Carbon Dioxide 27 mmol/L (24-31); iSTAT Hematocrit 32 % (37-47); iSTAT Hemoglobin 10.9 g/dl (12.0-16.0); iSTAT Potassium 3.6 mmol/L (3.3-5.0); iSTAT Sodium 139 mmol/L (135-144)
--- NOTE | 2023-01-27 14:46 | Discharge Summary ---
Date of Service January 27, 2023 Principal Diagnosis coronary artery disease with stenting to the left anterior descending artery small left groin hematoma without suspicion for pseudoaneurysm Discharge Exam patient awake alert card exam is regular lungs are clear no wheezes or crackles extremities are with moderate bruising to the left groin right groin without bruising there is no palp pulsatile mass or bruits heard Discharge Data Allergies Allergy/AdvReac Type Severity Reaction Status Date / Time cat dander Allergy Severe THROAT Verified 01/26/23 07:36 CLOSES lubiprostone [From Amitiza] Allergy Severe elevated Verified 01/26/23 07:36 inr metronidazole [From Flagyl] Allergy Severe "severe Verified 01/26/23 07:36 reaction, can't even describe" rivaroxaban [From Xarelto] Allergy Intermediate Back Pain Verified 01/26/23 07:36 losartan Allergy Mild nausea/heart Verified 01/26/23 07:36 palpitations lisinopril AdvReac Mild Nausea Verified 01/26/23 07:36 Consultations 01/26/23 11:13 Consult Food Cart Attendant Routine Procedures Performed Operation Date: 01/26/23 08:00 Actual Procedures p Cineradiography w/Routine Exam - Davidson Baez MD, PhD s Cath, Right and Left Heart - Davidson Baez MD, PhD s Drug Eluting Stent SGl Vessel - Davidson Baez MD, PhD s Placement Art Occlusive Device - Davidson Baez MD, PhD s Ultrasound Vascular Access - Davidson Baez MD, PhD Ordered Studies 01/26/23 06:35 CL Cath Imgs for PACS use only Routine 01/26/23 10:57 CT Abd and Pelvis [CT abd pelvis IV con only] Stat Hospital Course (1) Coronary artery disease: Status post drug-eluting stent to the LAD. Guideline therapy per cardiology. aspirin , Brilinta, atorvastatin, metoprolol Cozaar Recommend cardiac rehab as an outpatient. (2) Hemorrhagic shock: Pt was hypotensive posts procedure concern for hypovolemic shock, supported briefly with pressors No large hematoma or hemorrhage identified on CT abdomen/pelvis. There is a small fluid collection noted around the left groin vessels. (3) HTN (hypertension): typically with metoprolol Plan patient follow-up Dr. Baez as an outpatient Total Time Total Time Spent Total Time Spent (In Minutes): it required greater than 30 minutes to prepare this patient for discharge Discharge Plan Discharge Items Patient Disposition: Home - Self-Care Reason For Visit: CATH, PCI Discharge Diagnosis: CAD s/p PCI Activity: Per Instructions section Non-emergency contact: Medical Malpractice Paralegal Call non-emergency contact if: you have any medication questions, your symptoms worsen, your pain is not controlled, you have a fever, your wound has increased redness and your wound has increased drainage Follow-up/Referrals: Davidson Baez MD, PhD [Physician] - 02/18/23 1:30 pm (Follow up scheduled on 02/18/23 @ 1:30pm) Fannie Cueto MD [Primary Care Provider] - 02/04/23 3:20 pm (Follow up scheduled on 02/04/23 @ 3:20) Diet: Heart Healthy Addtl Attending Provider Instructions: ACTIVITY RECOMMENDATIONS: Excess manipulation of the wrist should be avoided for the next 24-48 hours. * No lifting over 2 pounds (approximately a 1/2 gallon of milk) with the utilized arm for 24 hours. * No strenuous activity such as bowling or tennis for 3 days. * Keep the site of the procedure covered with a bandage for 24 hours. *You may shower the day after the procedure. Do not take a tub bath or submerge the puncture site in water for the next 3 days. *Do not operate any motorized equipment for 3 days. SPECIAL CARE INSTRUCTIONS: The site may be slightly bruised and sore following your procedure. Should any of the following occur, contact the Dr. who performed your procedure. 1. Redness/inflammation, swelling, chills, or fever, or colored drainage at procedure site within 3-7 days after your procedure. 2. Coldness, discoloration, ongoing numbness, severe pain, or swelling. Expect mild tingling of hand and tenderness at the puncture site for up to three days. If this persists beyond three days, or other symptoms develop, notify the Dr. who performed your procedure. BLEEDING: If the procedure site on your wrist begins to bleed, do not panic 1. Place 1 or 2 fingers firmly just slightly above the insertion site to stop the bleeding. You may be able to feel your pulse as you hold pressure. 2. Lift your finger after 5 minutes to see if the bleeding has stopped. 3. Once the bleeding has stopped, gently wipe the wrist area clean with a bandage. * If the bleeding from your wrist does not stop after 10 minutes, or if there is a large amount of bleeding or spurting, call 911 (do not drive yourself to the hospital). SKIN IRRITATION: * You may experience some redness and/or swelling in the area where radiation was administered. If any skin irritation occurs, please contact your family physician. FOLLOW UP VISIT: Keep any scheduled doctor appointments. Pending Studies at Discharge: No Stand-Alone Forms: My [facility] Scandid, Smoking Cessation Medications and DC Order Prescriptions: New Brilinta 90 mg Tablet 90 mg PO BID Qty: 60 3RF atorvastatin 20 mg Tablet 20 mg PO QAM Qty: 90 3RF aspirin 81 mg Tablet,Delayed Release (Dr/Ec) 81 mg PO QAM Qty: 90 3RF metoprolol tartrate 25 mg Tablet 12.5 mg PO BID Qty: 90 3RF Continued diclofenac sodium 1 % gel 2 gm topical TID PRN (Reason: pain and inflammation) Qty: 1 Rx Instructions: Apply 2 gm to affected areas on the right and left elbow 3 times a day as needed for pain and inflammation Premarin 0.625 mg/gram cream 0.625 mg vaginal .COMPLEX Rx Instructions: 0.625 mg vaginal TWICE WEEKLY; off 5 days; repeat cycle hydrocortisone 2.5 % cream 1 applic topical .COMPLEX Qty: 30 1RF Rx Instructions: 1 applic topical to areas of the abdomen 1-2 times daily as directed.; mupirocin 2 % ointment 1 applic topical BID Qty: 15 1RF Rx Instructions: Apply small amount to the external ear 1-2 x daily x 2 weeks meloxicam 15 mg tablet 15 mg PO DAILY PRN (Reason: Inflammation) fluocinolone acetonide oil 0.01 % drops 4 drp otic (ear) BID PRN (Reason: ear itching) Rx Instructions: Apply to affected ear BID x 10 days then once daily x 3 days then every other day until follow-up clotrimazole 1 % solution See Rx Instructions topical BID PRN (Reason: acne) Rx Instructions: topically twice a day PRN; 4 gtt to ear BID x 14 days and may apply a 1-2 drops to affected area of external ear daily. clindamycin phosphate 1 % solution 1 applic TOP BID PRN (Reason: Acne) diazepam 5 mg tablet 5 mg PO BID PRN (Reason: anxiety) Qty: 15 0RF duloxetine [Cymbalta] 60 mg capsule,delayed release(DR/EC) 60 mg PO QAM Qty: 90 1RF irbesartan 150 mg tablet 75 mg PO BID 30 Days Qty: 30 2RF fluocinonide 0.05 % cream 1 applic topical DAILY PRN (Reason: rash) Qty: 15 1RF duloxetine [Cymbalta] 30 mg capsule,delayed release(DR/EC) 30 mg PO DAILY PRN (Reason: Anxiety) Patient Comments: PT STATES ONLY TAKES NEEDED hydrocortisone acetate [Anucort-HC] 25 mg suppository 25 mg [place] BID PRN (Reason: pain) Qty: 24 0RF lactulose 10 gram/15 mL solution 30 g PO QID PRN (Reason: constipation) Qty: 473 0RF Discontinued (DME) pharmacy compounding accessory misc See Dose Instructions .ROUTE .MEDSUPPLY Qty: 28 0RF Dose Instruction: As directed Rx Instructions: Diazepam 5mg supp: 1 supp intravaginally 4 times daily as needed Discharge Orders: Discharge Order (Routine); Ordered 01/27/23 Ordered By: Davidson Vazquez/Other Patient Handouts: Ticagrelor Oral Tablet, Atorvastatin Oral Tablet, Metoprolol Oral Tablet Admission Data Admit Date/Time: 01/26/23 11:12 Attending Provider: Davonte Yanes Admit Provider: Davidson Baez Primary Care Provider: Fannie Cueto Other Providers: Ángel Santos ; Gucci Hernandez ; Grover Lindo ; Pérez Stover Chase B. ; Reji Lugo ; Saskia Abraham ; Jonathan Espino ; Machelle Gross ; Izzy Arrieta ; Guillermo Garcia ; James Sullivan Other Interventions: Discharge Summary Assessment (RN) Last Done: 01/27/23 11:19 Coding Level of Care Code 14989 INP/OBS DISCH >30 MIN Diagnoses Coronary artery disease I25.10 Hemorrhagic shock R57.8 HTN (hypertension) I10 Hypertension type: primary hypertension
--- NOTE | 2023-01-29 12:50 | Coding Query ---
CODING QUERY To promote full compliance with coding requirements relating to patient care, provider participation is requested in all cases of ui ux web developer uncertainty. Please assist us with the question(s) below: Coding Question(s): Please specify below, in your clinical opinion, regarding the following diagnosis documented after Cardiac Catheterization procedure: HEMORRHAGIC SHOCK (documented on the Critical Care Consultation on 01/26, Critical Care Progress Note on 01/27 and on Discharge Summary): ( ) Likely postoperative complication ( X ) Not postoperative complication ( ) Other: Please Specify Physician's Response(s): Thank you Renate Moncada Principal Diagnosis: "that condition established after study, to be chiefly responsible for occasioning the admission of the patient to the hospital for care." Co-Existing Principal Diagnosis: "when two or more diagnoses equally meet the criteria for principal diagnosis as determined by the circumstances of admission, diagnostic work up, and/or therapy provided, and the Alphabetic Index, Tabular List, or another coding guideline does not provide sequencing direction, any one of the diagnoses may be sequenced first." "When the physician has documented what appears to be a current diagnosis in the body of the record, but has not included the diagnosis in the final diagnostic statement, the physician should be asked whether the diagnosis should be added." (Source Coding Clinic 2 QTR90. p3-4) MATTEO
== END 2023-01-27 12:00 | disposition home or self-care (01) | DRG 321 ==
LOC: CC 06:58 → 1E 11:12 → SUATTDRO 11:12 → INTOOBSV 11:12